=== PATIENT | male | born 1990 | race Caucasian/White ===

== ENCOUNTER 2017-03-23 12:19 | Emergency (ER) | payer SELFPAY ==
[~2017-03-23] VITALS: Ht 182.9 cm; Wt 70.0 kg
[2017-03-23 12:38] VITALS: BP 132/79; PULSE 68; RESP 15; TEMP 98.1; O2SAT 99
--- NOTE | 2017-03-23 12:42 | PD ---
HPI Chief Complaint: Oral / Dental Pain or Problem Time Seen by Provider: 12:41 Travel History International Travel<30 days: No Contact w/Intl Traveler<30days: No Traveled to known affect area: No History of Present Illness HPI 26-year-old male presents the emergency department with dental pain in the left upper jaw. Patient states she's had a broken tooth there for quite some time, but the last 3 days has had increased pain, swelling, and difficulty eating secondary. He denies difficulty swallowing, fever, or other symptoms. Patient currently is 06/01. He tried some jnah-zsl-ctribiz medications without improvement. He is scheduled to see his dentist on Monday. He has no known drug allergies. [facility] Social History Alcohol Use: No Tobacco Use: No Allergies-Medications (Allergen,Severity, Reaction): Coded Allergies: No Known Allergies (Unverified , 03/23/17) Reported Meds & Prescriptions Reported Meds & Active Scripts Active Magic Mouthwash Adult Liq (Multi-Ingredient Mouthwash/Gargle) 120 Ml Susp 5 Ml SWISH-SWAL ACHS Each 5 mL contains: Nystatin 200,000 units, Diphenhydramine 4.25 mg, Viscous Lidocaine 10 mg, Chang syrup 0.8 mL Ibuprofen 800 Mg Tab 800 Mg PO Q8H PRN Clindamycin (Clindamycin HCl) 150 Mg Cap 300 Mg PO Q6H 7 Days Reported Vistaril (Hydroxyzine Pamoate) 50 Mg Cap 50 Mg PO TID Neurontin (Gabapentin) 600 Mg Tab 600 Mg PO TID Review of Systems Except as stated in HPI: all other systems reviewed are Neg General / Constitutional: No: Fever Eyes: No: Visual changes HENT: Positive: Dental Difficulties, No: Headaches, Gingival Bleeding Cardiovascular: No: Chest Pain or Discomfort Respiratory: No: Shortness of Breath Gastrointestinal: No: Abdominal Pain Genitourinary: No: Dysuria Musculoskeletal: No: Pain Skin: No Rash Neurologic: No: Weakness Psychiatric: No: Depression Endocrine: No: Polydipsia Hematologic/Lymphatic: No: Easy Bruising Physical Exam Narrative GENERAL: Patient appears in mild to moderate distress. SKIN: Warm and dry. Normal color. Normal turgor. HEAD: Atraumatic. Normocephalic. EYES: Pupils equal and round. No scleral icterus. No injection or drainage. ENT: No nasal bleeding or discharge. Mucous membranes pink and moist. TMs are clear bilaterally. Patient has a broken tooth of the #15 tooth with obvious caries, tenderness, and localized gingival swelling.. Abscesses noted. Pharynx is clear. Airway is patent. No significant lymphadenopathy. NECK: Trachea midline. Supple and nontender without significant lymphadenopathy. CARDIOVASCULAR: Regular rate and rhythm. RESPIRATORY: No accessory muscle use. Clear to auscultation. Breath sounds equal bilaterally. MUSCULOSKELETAL: Extremities without clubbing, cyanosis, or edema. No obvious deformities. NEUROLOGICAL: Awake and alert. No obvious cranial nerve deficits. Motor grossly within normal limits. Five out of 5 muscle strength in the arms and legs. Normal speech. PSYCHIATRIC: Appropriate mood and affect; insight and judgment normal. Data Data Last Documented VS Vital Signs Date Time Temp Pulse Resp B/P Pulse Ox O2 Delivery O2 Flow Rate FiO2 03/23/17 12:38 98.1 68 15 132/79 99 Orders Ibuprofen (Motrin) (03/23/17 13:00) [facility] Medical Decision Making Medical Screen Exam Complete: Yes Emergency Medical Condition: Yes Differential Diagnosis Dental pain. Dental caries. Dental abscess. Narrative Course Patient is medically stable at time of exam. Patient will be treated with amoxicillin 875 twice a day 10 days Patient given ibuprofen 800 mg 3 times daily with food #30. Patient's given Magic mouthwash once every 2 hours when necessary pain 120 mL 1 refill. Patient is to follow-up with his dentist next week as scheduled or return to emergency department as needed Diagnosis Primary Impression: Abscess, dental Referrals: Dentist Patient Instructions: Dental Abscess (ED), General Instructions Departure Forms: Work Release Enter return to work date: Mar 25, 2017 Additional Instructions: Patient will be treated with amoxicillin 875 twice a day 10 days Patient given ibuprofen 800 mg 3 times daily with food #30. Patient's given Magic mouthwash once every 2 hours when necessary pain 120 mL 1 refill. Patient is to follow-up with his dentist next week as scheduled or return to emergency department as needed Med/Other Pt SpecificInfo: Prescription(s) given Scripts Amoxicillin 875 Mg [id number] Mg PO BID #20 TAB Prov:Asiya Peter MD 03/23/17 Swpudjef-Ypfddftkbyymqhm-Qjozmvehw Liq (Magic Mouthwash Adult Liq)120 Ml Susp5 Ml SWISH-SWAL ACHS #120 ML Ref 1 Each 5 mL contains: Nystatin 200,000 units, Diphenhydramine 4.25 mg, Viscous Lidocaine 10 mg, Chang syrup 0.8 mL Prov:Asiya Peter MD 03/23/17 Ibuprofen 800 Mg [id number] Mg PO Q8H PRN (Pain/Inflammation) #30 TAB Prov:Asiya Peter MD 03/23/17 Clindamycin 150 Mg [id number] Mg PO Q6H 7 Days Prov:Asiya Peter MD 03/23/17 Disposition: 01 DISCHARGE HOME Condition: Stable Axel Wagner Mar 23, 2017 12:42
[2017-03-23] MEDS ORDERED: MAGICADU2 SWISH-SWAL (12:45)
[2017-03-23] MEDS ORDERED: CLIN1CAP5 PO (12:45)
[2017-03-23] MEDS ORDERED: IBUP800T23 PO (12:45)
[2017-03-23] MEDS ORDERED: IBUPROFEN 800 MG TAB PO ONE (13:00)
[2017-03-23] MEDS ORDERED: NEUR600T PO (13:00)
[2017-03-23] MEDS ORDERED: VIST50CA PO (13:03)
[2017-03-23] MEDS ORDERED: AMOX875T PO (13:09)
== END 2017-03-23 13:16 | disposition home or self-care (01) ==
LOC: NEPK 12:19
DX: K04.7 Periapical abscess without sinus (principal)
CPT/HCPCS: 99284

== ENCOUNTER 2017-04-24 16:40 | Emergency (ER) | payer SELFPAY ==
[~2017-04-24] VITALS: Ht 182.9 cm; Wt 68.0 kg
[~2017-04-24 16:40] MED LIST: AMOX875T PO; CLIN1CAP5 PO; IBUP800T23 PO; MAGICADU2 SWISH-SWAL; NEUR600T PO; VIST50CA PO
[2017-04-24 16:41] VITALS: BP 135/83; PULSE 84; RESP 16; TEMP 97.8; O2SAT 98
--- NOTE | 2017-04-24 17:14 | PD ---
HPI Chief Complaint: Medication Refill Request Time Seen by Provider: 17:13 Travel History International Travel<30 days: No Contact w/Intl Traveler<30days: No Traveled to known affect area: No History of Present Illness HPI 26-year-old male presents the emergency department for refills of his gabapentin 600 mg 3 times a day which he takes for neuropathy pain, as well as Vistaril 50 mg twice a day that he takes for anxiety. 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 Patient has no other acute complaints or needs. He has no known drug allergies. PFSH Social History Alcohol Use: No Tobacco Use: No Allergies-Medications (Allergen,Severity, Reaction): Coded Allergies: No Known Allergies (Unverified , 04/24/17) Reported Meds & Prescriptions Reported Meds & Active Scripts Active Vistaril (Hydroxyzine Pamoate) 50 Mg Cap 50 Mg PO BID 30 Days Neurontin (Gabapentin) 600 Mg Tab 600 Mg PO TID Amoxicillin 875 Mg Tab 875 Mg PO BID Magic Mouthwash Adult Liq (Multi-Ingredient Mouthwash/Gargle) 120 Ml Susp 5 Ml SWISH-SWAL ACHS Each 5 mL contains: Nystatin 200,000 units, Diphenhydramine 4.25 mg, Viscous Lidocaine 10 mg, Chang syrup 0.8 mL Ibuprofen 800 Mg Tab 800 Mg PO Q8H PRN Clindamycin (Clindamycin HCl) 150 Mg Cap 300 Mg PO Q6H 7 Days Review of Systems Except as stated in HPI: all other systems reviewed are Neg General / Constitutional: No: Fever Eyes: No: Visual changes HENT: No: Headaches Cardiovascular: No: Chest Pain or Discomfort Respiratory: No: Shortness of Breath Gastrointestinal: No: Abdominal Pain Genitourinary: No: Dysuria Musculoskeletal: No: Pain Skin: No Rash Neurologic: Positive: Other (neuropathy), No: Weakness Psychiatric: Positive: Anxiety, No: Depression, Suicidal Ideations, Homicidal Ideation Endocrine: No: Polydipsia Hematologic/Lymphatic: No: Easy Bruising Physical Exam Narrative GENERAL: No acute distress SKIN: Warm and dry. Normal color. Normal turgor. HEAD: Atraumatic. Normocephalic. EYES: Pupils equal and round. No scleral icterus. No injection or drainage. ENT: No nasal bleeding or discharge. Mucous membranes pink and moist. Pharynx is clear. Airway is patent. NECK: Trachea midline. Supple nontender. CARDIOVASCULAR: Regular rate and rhythm. RESPIRATORY: No accessory muscle use. Clear to auscultation. Breath sounds equal bilaterally. MUSCULOSKELETAL: Extremities without clubbing, cyanosis, or edema. No obvious deformities. NEUROLOGICAL: Awake and alert. No obvious cranial nerve deficits. Motor grossly within normal limits. Five out of 5 muscle strength in the arms and legs. Normal speech. PSYCHIATRIC: Appropriate mood and affect; insight and judgment normal. Data Data Last Documented VS Vital Signs Date Time Temp Pulse Resp B/P Pulse Ox O2 Delivery O2 Flow Rate FiO2 04/24/17 16:41 97.8 84 16 135/83 98 MDM Medical Decision Making Medical Screen Exam Complete: Yes Emergency Medical Condition: Yes Differential Diagnosis Anxiety. Neuropathy. Need for medications. Narrative Course Patient is medically stable at time of exam. Patient is given refills of his gabapentin 600 mg 3 times a day #90 with no refills. Patient is given refill of his Vistaril 50 mg twice a day with no refills. Patient is referred to local primary care physician for further medication refills in the future. Diagnosis Primary Impression: Medication refill Additional Impressions: Neuropathy Anxiety Referrals: [facility] (Out patient) [facility] Patient Instructions: Anxiety (ED), General Instructions Additional Instructions: Patient is medically stable at time of exam. Patient is given refills of his gabapentin 600 mg 3 times a day #90 with no refills. Patient is given refill of his Vistaril 50 mg twice a day with no refills. Patient is referred to local primary care physician for further medication refills in the future. Scripts Hydroxyzine Pamoate (Vistaril)50 Mg Cap50 Mg PO BID 30 Days Ref 0 Prov:Asiya Peter MD 04/24/17 Gabapentin (Neurontin)600 Mg [id number] Mg PO TID #90 TAB Ref 0 Prov:Asiya Peter MD 04/24/17 Disposition: 01 DISCHARGE HOME Condition: Stable Axel Wagner Apr 24, 2017 17:13
[2017-04-24] MEDS ORDERED: NEUR600T PO (17:18)
[2017-04-24] MEDS ORDERED: VIST50CA PO (17:18)
== END 2017-04-24 17:48 | disposition home or self-care (01) ==
LOC: NEPK 16:40
DX: G62.9 Polyneuropathy, unspecified (principal); F41.9 Anxiety disorder, unspecified; Z76.0 Encounter for issue of repeat prescription
CPT/HCPCS: 99281

== ENCOUNTER 2017-11-01 16:23 | Emergency (ER) | payer SELFPAY ==
[~2017-11-01] VITALS: Ht 182.9 cm; Wt 70.5 kg
[~2017-11-01 16:23] MED LIST changes: -AMOX875T PO; -CLIN1CAP5 PO; -IBUP800T23 PO; -MAGICADU2 SWISH-SWAL
[2017-11-01 16:24] VITALS: BP 124/74; PULSE 78; RESP 16; TEMP 99.4; O2SAT 100
--- NOTE | 2017-11-01 20:46 | PD ---
HPI Chief Complaint: Medication Refill Request Time Seen by Provider: 17:13 Travel History International Travel<30 days: No Contact w/Intl Traveler<30days: No Traveled to known affect area: No History of Present Illness HPI This report is in ERROR Please disregard this report and all prior copies ! This report is in ERROR Please disregard this report and all prior copies ! This report is in ERROR Please disregard this report and all prior copies ! PFSH Social History Alcohol Use: No Tobacco Use: No Allergies-Medications (Allergen,Severity, Reaction): Coded Allergies: No Known Allergies (Unverified , 04/24/17) Reported Meds & Prescriptions Reported Meds & Active Scripts Active Vistaril (Hydroxyzine Pamoate) 50 Mg Cap 50 Mg PO BID 30 Days Neurontin (Gabapentin) 600 Mg Tab 600 Mg PO TID Physical Exam Narrative This report is in ERROR Please disregard this report and all prior copies ! This report is in ERROR Please disregard this report and all prior copies ! This report is in ERROR Please disregard this report and all prior copies ! Data Data Last Documented VS Vital Signs Date Time Temp Pulse Resp B/P (MAP) Pulse Ox O2 Delivery O2 Flow Rate FiO2 11/01/17 16:24 99.4 78 16 124/74 (91) 100 Room Air MDM Medical Decision Making Medical Screen Exam Complete: Yes Emergency Medical Condition: Yes Differential Diagnosis This report is in ERROR Please disregard this report and all prior copies ! This report is in ERROR Please disregard this report and all prior copies ! This report is in ERROR Please disregard this report and all prior copies ! Narrative Course This report is in ERROR Please disregard this report and all prior copies ! This report is in ERROR Please disregard this report and all prior copies ! This report is in ERROR Please disregard this report and all prior copies ! Judith Rosas [facility] Nov 01, 2017 20:46
[2017-11-01] MEDS ORDERED: GABA600T PO (21:36)
--- NOTE | 2017-11-01 21:36 | PD ---
HPI Chief Complaint: Medication Refill Request Time Seen by Provider: 21:30 Travel History International Travel<30 days: No Contact w/Intl Traveler<30days: No Traveled to known affect area: No History of Present Illness HPI This is a 27-year-old male who presents to the emergency department requesting a refill of gabapentin. He says he uses it as a seizure medicine and admitted stabilizer. He is to get his medical care at the [facility] in [place] but he has a job at the [employer] here in [facility] and has been trying to move his medical care here. He says he always feels foggy, constant, moderate severity when he is off of his gabapentin. [facility] Social History Alcohol Use: No Tobacco Use: No Allergies-Medications (Allergen,Severity, Reaction): Coded Allergies: No Known Allergies (Unverified , 04/24/17) Reported Meds & Prescriptions Reported Meds & Active Scripts Active Vistaril (Hydroxyzine Pamoate) 50 Mg Cap 50 Mg PO BID 30 Days Neurontin (Gabapentin) 600 Mg Tab 600 Mg PO TID Review of Systems General / Constitutional: No: Fever, Chills Respiratory: No: Cough, Shortness of Breath Physical Exam Narrative GENERAL: Well-appearing, no acute distress, nontoxic SKIN: Warm and dry. HEAD: Atraumatic. Normocephalic. ENT: No nasal bleeding or discharge. Moist mucous membranes MUSCULOSKELETAL: No obvious deformities. No clubbing. No cyanosis. No edema. NEUROLOGICAL: Awake and alert. No obvious cranial nerve deficits. Motor grossly within normal limits. Normal speech. PSYCHIATRIC: Appropriate mood and affect; insight and judgment normal. Data Data Last Documented VS Vital Signs Date Time Temp Pulse Resp B/P (MAP) Pulse Ox O2 Delivery O2 Flow Rate FiO2 11/01/17 16:24 99.4 78 16 124/74 (91) 100 Room Air MDM Medical Decision Making Medical Screen Exam Complete: Yes Emergency Medical Condition: Yes Interpretation(s) afebrile, no tachycardia, normotensive Differential Diagnosis medication refill Narrative Course This is a 27-year-old male requesting a medication refill and gabapentin. He will be prescribed 1 month's worth a gabapentin and he was given resources for IMASTE. Diagnosis Primary Impression: Medication refill Patient Instructions: General Instructions Med/Other Pt SpecificInfo: Prescription(s) given Scripts Gabapentin (Gabapentin) 600 Mg Tab 600 MG PO TID, #90 TAB 0 Refills Prov: Asiya Peter MD 11/01/17 Disposition: 01 DISCHARGE HOME Condition: Stable Asiya Peter MD Nov 01, 2017 21:36
[2017-11-01 21:53] VITALS: BP 132/86; PULSE 82; RESP 18; O2SAT 99
== END 2017-11-01 21:55 | disposition home or self-care (01) ==
LOC: NEPD 16:23
DX: R56.9 Unspecified convulsions (principal); Z59.0 Homelessness
CPT/HCPCS: 99281

== ENCOUNTER 2018-02-20 13:33 | Emergency (ER) | payer SELFPAY ==
[~2018-02-20] VITALS: Ht 180.3 cm; Wt 73.0 kg
[~2018-02-20 13:33] MED LIST changes: +GABA600T PO
[2018-02-20 13:56] VITALS: BP 125/57; PULSE 74; RESP 16; TEMP 97.9; O2SAT 100
--- NOTE | 2018-02-20 14:22 | PD ---
HPI Chief Complaint: Complaint Time Seen by Provider: 14:07 Travel History International Travel<30 days: No Contact w/Intl Traveler<30days: No Traveled to known affect area: No History of Present Illness HPI Patient is a 27-year-old male presenting to to the emergency department for evaluation of urinary symptoms. Patient states he has had urinary frequency, burning, bladder spasms for the last 2 days. He denies any back pain, fever, chills, nausea, vomiting. Patient denies any recent unprotected sexual activity. He states when he urinates it matamoros, he denies any penile discharge. He states that he has been taking Azo [id number] which is helped with the spasms. Symptom onset was gradual, symptoms are moderate in nature. He reports pain is a 2 out of 10 at its worse. PFSH Past Medical History Depression: Yes Neurologic: Yes Social History Alcohol Use: No Tobacco Use: Yes Substance Use: No Allergies-Medications (Allergen,Severity, Reaction): Coded Allergies: No Known Allergies (Unverified Adverse Reaction, Unknown, 02/20/18) Reported Meds & Prescriptions Reported Meds & Active Scripts Active Vistaril (Hydroxyzine Pamoate) 50 Mg Cap 50 Mg PO BID 30 Days Neurontin (Gabapentin) 600 Mg Tab 600 Mg PO TID Review of Systems Except as stated in HPI: all other systems reviewed are Neg General / Constitutional: No: Fever Gastrointestinal: No: Nausea, Abdominal Pain Genitourinary: Positive: Frequency, Dysuria, Pelvic Pain (Spasm), No: Discharge Physical Exam Narrative GENERAL: Well-developed, well-nourished, alert male. Presenting in no acute distress. SKIN: Warm and dry. HEAD: Normocephalic. EYES: No scleral icterus. No injection or drainage. NECK: Supple, trachea midline. No JVD or lymphadenopathy. CARDIOVASCULAR: Regular rate and rhythm without murmurs, gallops, or rubs. RESPIRATORY: Breath sounds equal bilaterally. No accessory muscle use. GASTROINTESTINAL: Abdomen soft, non-tender, nondistended. Positive bowel sounds. No rebound, no guarding. MUSCULOSKELETAL: No cyanosis, or edema. BACK: Nontender without obvious deformity. No CVA tenderness bilaterally. Data Data Last Documented VS Vital Signs Date Time Temp Pulse Resp B/P (MAP) Pulse Ox O2 Delivery O2 Flow Rate FiO2 02/20/18 13:56 97.9 74 16 125/57 (79) 100 Orders Orders Urinalysis - C+S If Indicated (02/20/18 14:06) Gc And Chlamydia Pcr (02/20/18 14:06) Labs Laboratory Tests Test 02/20/18 14:15 Urine Color LIGHT-YELLOW Urine Turbidity CLEAR Urine pH 7.5 Urine Specific Emma 1.017 Urine Protein NEG mg/dL Urine Glucose (UA) NEG mg/dL Urine Ketones NEG mg/dL Urine Occult Blood NEG Urine Nitrite NEG Urine Bilirubin NEG Urine Urobilinogen LESS THAN 2.0 MG/DL Urine Leukocyte Esterase NEG Urine RBC LESS THAN 1 /hpf Urine WBC 1 /hpf Microscopic Urinalysis Comment CULT NOT INDICATED MDM Medical Decision Making Medical Screen Exam Complete: Yes Emergency Medical Condition: Yes Interpretation(s) Laboratory Tests Test 02/20/18 14:15 Urine Color LIGHT-YELLOW Urine Turbidity CLEAR Urine pH 7.5 Urine Specific Emma 1.017 Urine Protein NEG mg/dL Urine Glucose (UA) NEG mg/dL Urine Ketones NEG mg/dL Urine Occult Blood NEG Urine Nitrite NEG Urine Bilirubin NEG Urine Urobilinogen LESS THAN 2.0 MG/DL Urine Leukocyte Esterase NEG Urine RBC LESS THAN 1 /hpf Urine WBC 1 /hpf Microscopic Urinalysis Comment CULT NOT INDICATED Vital Signs Date Time Temp Pulse Resp B/P (MAP) Pulse Ox O2 Delivery O2 Flow Rate FiO2 02/20/18 13:56 97.9 74 16 125/57 (79) 100 Differential Diagnosis UTI versus STD versus less likely kidney stone versus other Narrative Course Patient is well-appearing 27-year-old male presenting with 2 days of urinary symptoms. Patient's vital signs are stable, urinalysis as well as GC and chlamydia ordered and pending. Urinalysis is unremarkable. Patient denies any unprotected sex in several months, for that matter he denies any sexual activity. Patient was given a prescription for Keflex, he is encouraged to start if his symptoms do not improve. He was advised to be reevaluated if that was the case. He verbalized understanding of instructions. Patient stable for discharge. Diagnosis Primary Impression: Dysuria Referrals: [facility] 1 day Call at 8 AM to schedule an appointment, there are 12 open appointments daily Patient Instructions: Dysuria (ED), General Instructions Additional Instructions: Follow-up at the [facility] If you begin the antibiotic, complete full course of antibiotics as prescribed Return to emergency department for any new or worsening symptoms Med/Other Pt SpecificInfo: Prescription(s) given Scripts Cephalexin (Keflex) 500 Mg Cap 500 MG PO Q12H for Infection for 7 Days, #14 CAP 0 Refills Prov: Judith Rosas 02/20/18 Disposition: 01 DISCHARGE HOME Condition: Stable Judith Rosas February 20, 2018 14:22
[2018-02-20 14:29] LABS: BILIRUBIN, URINE NEG (NEG); BLOOD, URINE NEG (NEG); GLUCOSE,URINE NEG (NEG); KETONE, URINE NEG (NEG); NITRITE,URINE NEG (NEG); PH, URINE 7.5 (5.0-8.5); URINE COLOR LIGHT-YELLOW (YELLW/STRAW); URINE LEUKOCYTE ESTERASE NEG (NEG)
[2018-02-20] MEDS ORDERED: CEPH-460 PO (14:41)
== END 2018-02-20 14:53 | disposition home or self-care (01) ==
LOC: NEPK 13:33
DX: R30.0 Dysuria (principal); Z72.0 Tobacco use
CPT/HCPCS: 81001; 87491; 87591; 99283